=== PATIENT | male | born 1990 | race Caucasian/White ===

== ENCOUNTER 2019-06-01 06:44 | Emergency (ER) | payer OTHER ==
[~2019-06-01] VITALS: Ht 180.3 cm; Wt 91.0 kg
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
--- NOTE | 2019-06-01 09:23 | NUR ---
Pt OOB w/out assist to restroom. Awaiting ER MD ho.
--- NOTE | 2019-06-01 09:58 | NUR ---
Resting comfortably, no needs at this time. Ribs x-ray pending.
[2019-06-01 11:23] VITALS: BP 110/67
--- NOTE | 2019-06-01 11:23 | NUR ---
Patient given discharge instructions and they have confirmed that they understand the instructions. Patient ambulatory with steady gait. Copies of WC paperwork provided.
== END 2019-06-01 11:25 | disposition home or self-care (01) ==
LOC: ED 10:36
DX: R07.89 Other chest pain (principal); R07.81 Pleurodynia; F17.200 Nicotine dependence, unspecified, uncomplicated; Y04.0XXA Assault by unarmed brawl or fight, initial encounter; Y93.89 Activity, other specified; Y92.69 Other specified industrial and construction area as the place of occurrence of the external cause; Y99.8 Other external cause status
CPT/HCPCS: 93005; 99283

== ENCOUNTER 2019-06-14 09:39 | Emergency (ER) | payer OTHER ==
[~2019-06-14] VITALS: Ht 177.8 cm; Wt 90.5 kg
[2019-06-14 09:45] VITALS: BP 122/81
[2019-06-14 10:57] LABS: BASOPHILS # (AUTO) 0.05 x10^3/uL (0-0.1); BASOPHILS % (AUTO) 1 % (0-1); EOSINOPHILS # (AUTO) 0.19 x10^3/uL (0-0.4); EOSINOPHILS % (AUTO) 3 % (1-7); LYMPHOCYTES # (AUTO) 2.24 x10^3/uL (1-3.4); LYMPHOCYTES % (AUTO) 31 % (22-44); MD NO; MEAN CORPUSCULAR HEMOGLOBIN 30.6 pg (27.5-34.5); MEAN CORPUSCULAR HGB CONC 33.9 g/dL (33.2-36.2); MEAN CORPUSCULAR VOLUME 90.4 fL (81-97); MEAN PLATELET VOLUME 9.4 fL (7.4-10.4); MONOCYTES # (AUTO) 0.64 x10^3/uL (0.2-0.8); MONOCYTES % (AUTO) 9 % (2-9); NEUTROPHILS # (AUTO) 4.07 x10^3/uL (1.8-6.8); NEUTROPHILS % (AUTO) 57 % (42-75); PLATELET COUNT 278 x10^3/uL (130-400); RED BLOOD COUNT 4.87 x10^6/uL (4.38-5.82); RED CELL DISTRIBUTION WIDTH 12.6 % (9.4-14.8)
== END 2019-06-14 11:48 | disposition home or self-care (01) ==
LOC: ED 10:18
DX: R07.89 Other chest pain (principal); F17.200 Nicotine dependence, unspecified, uncomplicated
CPT/HCPCS: 36415; 71046; 74176; 85025; 99285

== ENCOUNTER 2020-11-07 16:10 | Emergency (ER) | payer BC, OTHER ==
[~2020-11-07] VITALS: Ht 177.8 cm; Wt 81.0 kg
--- NOTE | 2020-11-07 17:02 | NUR ---
NO PT RESPONSE WHEN NAME CALLED IN LOBBY
[2020-11-07 17:23] VITALS: BP 97/63
--- NOTE | 2020-11-07 18:33 | NUR ---
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
== END 2020-11-07 19:12 | disposition home or self-care (01) ==
LOC: ED 19:05
DX: K04.7 Periapical abscess without sinus (principal); K02.9 Dental caries, unspecified
CPT/HCPCS: 99283